=== PATIENT | male | born 1955 | race Asian ===

== ENCOUNTER 2019-02-03 14:38 | Emergency (ER) | payer SELFPAY ==
[~2019-02-03] VITALS: Ht 165.1 cm; Wt 68.0 kg
[2019-02-03 15:23] VITALS: BP 00/000; Ht 165.1 cm; Wt 68.0 kg
== END 2019-02-03 19:12 | disposition expired ==
LOC: ED 14:38
DX: I46.9 Cardiac arrest, cause unspecified (principal); Z86.73 Personal history of transient ischemic attack (TIA), and cerebral infarction without residual deficits
CPT/HCPCS: J7030